=== PATIENT | female | born 1990 | race African-American/Black ===

== ENCOUNTER 2021-05-20 19:16 | Emergency (ER) | payer OTHER, BC ==
[~2021-05-20] VITALS: Ht 170.2 cm; Wt 105.0 kg
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
[2021-05-20 20:15] VITALS: BP 149/97
[2021-05-20] MEDS ORDERED: HYDR-2759 PO (20:30)
[2021-05-20] MEDS ORDERED: ACETAMINOPHEN 500 MG TABLET PO ONE (20:30)
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
== END 2021-05-20 20:45 | disposition home or self-care (01) ==
LOC: ER 19:16
DX: S52.501A Unspecified fracture of the lower end of right radius, initial encounter for closed fracture (principal); V49.49XA Driver injured in collision with other motor vehicles in traffic accident, initial encounter; Y92.488 Other paved roadways as the place of occurrence of the external cause; Y93.89 Activity, other specified; Y99.8 Other external cause status
CPT/HCPCS: 73110; 99283

== ENCOUNTER 2021-07-21 17:16 | Emergency (ER) | payer BC, OTHER ==
[~2021-07-21] VITALS: Ht 170.2 cm; Wt 106.8 kg
[~2021-07-21 17:16] MED LIST: HYDR-2759 PO
--- NOTE | 2021-07-21 17:33 | PHYS DOC ---
Past Medical History Past Surgical History: No Surgical History Smoking Status: Light Tobacco Smoker Alcohol Use: None General Adult EDM: Chief Complaint: Palpitations HPI: HPI: Patient is a 30 year old female presenting to the ED today complaining of palpitations. Patient states she started a new weight loss medicine called by burn evolved a couple days ago, she states today she had caffeine and started to have palpitations. Patient denies any chest pain or shortness of breath. Review of Systems: Review of Systems: Constitutional: Denies fever or chills. [] Eyes: Denies change in visual acuity. [] HENT: Denies nasal congestion or sore throat. [] Respiratory: Denies cough or shortness of breath. [] Cardiovascular: Reports palpitations. Denies chest pain or edema. [] GI: Denies abdominal pain, nausea, vomiting, bloody stools or diarrhea. [] : Denies dysuria. [] Musculoskeletal: Denies back pain or joint pain. [] Integument: Denies rash. [] Neurologic: Denies headache, focal weakness or sensory changes. [] Psychiatric: Denies depression or anxiety. [] Heart Score: C/O Chest Pain: N/A Risk Factors: Risk Factors: DM, Current or recent (<one month) smoker, HTN, HLP, family history of CAD, obesity. Risk Scores: Score 0 - 3: 2.5% MACE over next 6 weeks - Discharge Home Score 4 - 6: 20.3% MACE over next 6 weeks - Admit for Clinical Observation Score 7 - 10: 72.7% MACE over next 6 weeks - Early Invasive Strategies Allergies: Allergies: Allergies Coded Allergies Type Severity Reaction Last Updated Verified No Known Drug Allergies 05/20/21 No Physical Exam: PE: Constitutional: Well developed, well nourished, no acute distress, non-toxic appearance. [] HENT: Normocephalic, atraumatic, bilateral external ears normal, oropharynx moist, no oral exudates, nose normal. [] Eyes: PERRLA, EOMI, conjunctiva normal, no discharge. [] Neck: Normal range of motion, no tenderness, supple, no stridor. [] Cardiovascular: Tachycardic Lungs & Thorax: Bilateral breath sounds clear to auscultation [] Abdomen: Bowel sounds normal, soft, no tenderness, no masses, no pulsatile masses. [] Skin: Warm, dry, no erythema, no rash. [] Back: No tenderness, no CVA tenderness. [] Extremities: No tenderness, no cyanosis, no clubbing, ROM intact, no edema. [] Neurologic: Alert and oriented X 3, normal motor function, normal sensory func tion, no focal deficits noted. [] Psychologic: Affect normal, judgement normal, mood normal. [] EKG: EK interpreted by Dr. Lebron sinus tachycardia heart rate 122 no STEMI [] Radiology/Procedures: Radiology/Procedures: [] Course & Med Decision Making: Course & Med Decision Making Pertinent Labs and Imaging studies reviewed. (See chart for details) This is a 30-year-old female patient presented to the ED today complaining of palpitations. Patient states she started a new weight loss [id number] medicine called by an elbow couple days ago and today she had caffeine started having palpitations. Arrives in the ED with heart rates in the 120s to 130s. Temperature 97.8, respiration 22 on room air, blood pressure 177/85, O2 sats 100% EKG noted for sinus tachycardia with heart rate in the 120s, CBC CMP UA with no acute findings. TSH is normal. UDS noted for marijuana use. D-dimer is normal Patient was given IV fluids, heart rate has come down to low 90s. She was discharged home. Advised not to take caffeine and diet pills. Her blood pressure was slightly up. I recommended she monitors it if it continues to be elevated she needs to follow-up with the PCP Fadi Disclaimer: Fadi Disclaimer: This electronic medical record was generated, in whole or in part, using a voice recognition dictation system. Departure Departure Impression: Primary Impression: Tachycardia Additional Impressions: Caffeine use Marijuana use Disposition: HOME / SELF CARE / HOMELESS Condition: STABLE Referrals: UNKNOWN PCP NAME (PCP) follow up in one week Patient Instructions: Nonspecific Tachycardia Additional Instructions: You were evaluated in the emergency room. We encourage you not to take diet pills and caffeine. Push fluids. Your blood pressure was slightly high 177/89. Please ensure you monitor this number at home, if it continues going up please follow-up with your primary care doctor, come back to the ED at any point symptoms worsen TIMUR HERRERA APRN Jul 21, 2021 17:33
[2021-07-21] MEDS ORDERED: IV NORMAL SALINE 1000ML BAG 1,000 ML IV ONE (17:45)
[2021-07-21 17:52] LABS: BILIRUBIN,URINE NEGATIVE (NEG); CLARITY,URINE CLEAR; COLOR,URINE YELLOW; NITRITE,URINE NEGATIVE (NEG); PROTEIN,URINE NEGATIVE (NEG-TRACE); UROBILINOGEN,URINE 0.2 mg/dL (0.2 mg/dL)
[2021-07-21 17:58] LABS: BARBITURATES NEG (NEG); BENZODIAZEPINES NEG (NEG); CANNABINOIDS POS (NEG); COCAINE NEG (NEG); METHADONE NEG (NEG); OPIATES NEG (NEG); PHENCYCLIDINE NEG (NEG)
[2021-07-21 18:00] LABS: AMPHETAMINE/METHAMPHETAMINE NEG (NEG)
[2021-07-21 18:03] LABS: BACTERIA,URINE MODERATE /HPF (0-FEW); RBC,URINE 0 /HPF (0-2); WBC,URINE OCC /HPF (0-4)
[2021-07-21 18:43] LABS: BASO % 1 % (0-3); EOS % 0 % (0-3); HEMATOCRIT 46.5 % (36.0-47.0); HEMOGLOBIN 15.7 g/dL (12.0-15.5); LYMPH # 2.6 x10^3/uL (1.0-4.8); LYMPH % 27 % (24-48); MEAN CORPUSCULAR HEMOGLOBIN 30 pg (25-35); MEAN CORPUSCULAR HGB CONC 34 g/dL (31-37); MEAN CORPUSCULAR VOLUME 88 fL (79-100); MONO # 0.5 x10^3/uL (0.0-1.1); MONO % 5 % (0-9); NEUT # 6.3 x10^3/uL (1.8-7.7); NEUT % 66 % (31-73); PLATELET COUNT 308 x10^3/uL (140-400); RED BLOOD COUNT 5.28 x10^6/uL (3.50-5.40); RED CELL DISTRIBUTION WIDTH 14.1 % (11.5-14.5); WHITE BLOOD COUNT 9.4 x10^3/uL (4.0-11.0)
[2021-07-21 18:56] LABS: CALCIUM 9.4 mg/dL (8.5-10.1); GFR 77.7; POTASSIUM 3.8 mmol/L (3.5-5.1)
[2021-07-21 19:01] LABS: ALBUMIN 3.9 g/dL (3.4-5.0); MAGNESIUM 1.9 mg/dL (1.8-2.4); TOTAL BILIRUBIN 0.4 mg/dL (0.2-1.0); TOTAL PROTEIN 7.8 g/dL (6.4-8.2)
[2021-07-21 19:14] VITALS: BP 169/84
--- NOTE | 2021-07-21 21:03 | RAD ---
Site ID: [id number] EXAMINATION: XR CHEST 1V. HISTORY: 30 years Female Reason: palpitations. . COMPARISON: None. Findings: Increased density over the left side of the chest the appears to be from superimposition of soft tissues with no definite focal infiltrate.. The heart size is normal. There is no effusion or p neumothorax. The mediastinum and dennis appear unremarkable. Impression: Unremarkable portable radiograph. Electronically signed by: Oliverio Silver MD (07/21/2021 9:01 PM) [id number]
--- NOTE | 2021-07-22 01:06 | EKG ---
[facility] [address] [place] [address] Test Date: 2021-07-21 Test Time: 17:41:57 Pat Name: MIQUEL ABREU Department: Room: Gender: F Subpoena Server: : [id number] Requested By: TIMUR HERRERA Order Number: [id number] Reading MD: Fco Pettit MD Measurements Intervals [place] Rate: 122 P: 36 UT: 116 QRS: 31 QRSD: 76 T: 41 QT: 306 QTc: 437 Interpretive Statements SINUS TACHYCARDIA Electronically Signed On 07-22-2021 9:16:07 [employer] by Fco Pettit MD
== END 2021-07-21 20:17 | disposition home or self-care (01) ==
LOC: ER 17:16
DX: R00.0 Tachycardia, unspecified (principal); F15.90 Other stimulant use, unspecified, uncomplicated; F12.90 Cannabis use, unspecified, uncomplicated; Z72.0 Tobacco use
CPT/HCPCS: 36415; 71045; 80053; 80307; 81001; 81025; 83735; 83880; 84443; 84484; 85025; 85379; 87086; 93005; 96360; 99285; J7030

== ENCOUNTER → 2021-10-15 | Outpatient (CLI) | payer OTHER, BC ==
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
== END ==
LOC: KCIC CT 08:27
PROVIDERS: ATTEND Physician Assistant
DX: S52.514D Nondisplaced fracture of right radial styloid process, subsequent encounter for closed fracture with routine healing (principal); M19.031 Primary osteoarthritis, right wrist; X58.XXXD Exposure to other specified factors, subsequent encounter
CPT/HCPCS: 73200